=== PATIENT | male | born 1990 | race Caucasian/White ===

== ENCOUNTER 2016-10-05 19:10 | Emergency (ER) | payer OTHER ==
[~2016-10-05 19:10] MED LIST: AMOXICILLIN PO; AMOXICILLIN500 M1 PO; LORTAB 5/500 TA1 TA1 PO; MEDROL DOSEPAK4 MG PO; PHENERGAN PO
== END 2016-10-05 19:48 | disposition home or self-care (01) ==
LOC: CED 19:10
DX: J30.9 Allergic rhinitis, unspecified (principal); H10.9 Unspecified conjunctivitis
CPT/HCPCS: 99282